=== PATIENT | female | born 1935 | race Caucasian/White ===

== ENCOUNTER → 2017-09-11 | Outpatient (CLI) | payer OTHER | END | disposition home or self-care (01) | LOC: CVU 07:22 | PROVIDERS: ATTEND Internal Medicine Cardiovascular Disease | DX: I78.1 Nevus, non-neoplastic (principal); I10 Essential (primary) hypertension; R60.9 Edema, unspecified; R01.1 Cardiac murmur, unspecified | CPT/HCPCS: 93970 ==

== ENCOUNTER → 2019-02-13 | Outpatient (CLI) | payer MEDICARE ==
[~2019-02-13] MED LIST: ASPI-496 PO; FURO20TA3 PO; LIPITOR
== END | disposition home or self-care (01) ==
LOC: CFH 14:21
PROVIDERS: ATTEND Physician Assistant Surgical
DX: L03.115 Cellulitis of right lower limb (principal)